=== PATIENT | female | born 1995 | race Caucasian/White ===

== ENCOUNTER 2016-08-18 10:50 | Emergency (ER) | payer SELFPAY ==
[2016-08-18 11:10] VITALS: TEMP 97.8; O2SAT 100
--- NOTE | 2016-08-18 12:29 | ED.PDOC ---
History of Present Illness - General Chief Complaint: TECHNOLOGY PROGRAM MANAGER Problem Stated Complaint: vaginal bleeding Time Seen by Provider: 08/18/16 10:51 Source: patient Exam Limitations: no limitations - History of Present Illness Initial Comments: the patient is a 20-year-old female presenting to the emergency room secondary to concern for a miscarriage. The patient's last menstrual period was in the early part of July. She took a urine test that was +3-4 days ago. She started having bleeding vaginally yesterday. She also has some cramping with it. No definite passage of tissue. Bleeding is a little bit heavier than a normal period. No syncope or near syncope. She has had 2 prior miscarriages. No fevers. Timing/Duration: 24 hours Severity: moderate Improving Factors: nothing Worsening Factors: nothing Allergies/Adverse Reactions: Allergies NO KNOWN ALLERGY Allergy (Verified 10/24/15 17:54) Home Medications: Ambulatory Orders Vit W/ Ferrous Fumara [] 1 tab PO DAILY 06/04/15 Review of Systems - Review of Systems Constitutional: States: no symptoms reported EENTM: States: no symptoms reported Respiratory: States: no symptoms reported Cardiology: States: no symptoms reported Gastrointestinal/Abdominal: States: see HPI Genitourinary: States: see HPI Musculoskeletal: States: no symptoms reported Skin: States: no symptoms reported Neurological: States: anxiety Endocrine: States: no symptoms reported All other Systems: No Change from Baseline Past Medical History (General) - Patient Medical History Hx Seizures: No Hx Stroke: No Hx Dementia: No Hx Asthma: No Hx of COPD: No Hx Cardiac Disorders: No Hx Congestive Heart Failure: No Hx Pacemaker: No Hx Hypertension: No Hx Thyroid Disease: No Hx Diabetes: No Hx Gastroesophageal Reflux: No Hx Renal Disease: No Hx Cancer: No Hx of HIV: No Hx Hepatitis C: No Hx MRSA: No Surgical History: no surgical history - Vaccination History Hx Tetanus, Diphtheria Vaccination: Yes Hx Influenza Vaccination: Yes - 2015 Hx Pneumococcal Vaccination: No - Social History Hx Tobacco Use: No Hx Chewing Tobacco Use: No Hx Alcohol Use: No Hx Substance Use: No Hx Substance Use Treatment: No Hx Depression: No Hx Physical Abuse: No Hx Emotional Abuse: No Hx Suspected Abuse: No - Female History Hx Last Menstrual Period: 01/19/14 Patient : Yes Family Medical History - Family History Mother Family History: Unknown Physical Exam - Physical Exam General Appearance: Alert, Anxious, No apparent distress Eye Exam: bilateral normal Ears, Nose, Throat: hearing grossly normal, normal ENT inspection, normal pharynx Neck: full range of motion, supple Respiratory: chest non-tender, lungs clear, normal breath sounds, no respiratory distress, no accessory muscle use Cardiovascular/Chest: normal peripheral pulses, regular rate, rhythm, no edema Peripheral Pulses: radial,right: 2+, radial,left: 2+, dorsalis pedis,right: 2+, dorsalis pedis,left: 2+ Gastrointestinal/Abdominal: non tender, soft Rectal Exam: deferred Back Exam: normal inspection, no CVA tenderness Extremity: normal range of motion, non-tender, normal inspection, no pedal edema , normal capillary refill 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 No obvious viable with gestational sac was seen. No free fluid in the pelvis. Progress - Progress Progress: 08/18/16 12:29 the patient is a 20-year-old female that presented to the emergency room secondary to concern for early miscarriage. Serum hCG is undetectable. She reports a positive urine hCG a few days ago. This was either a false positive or she checked just as her levels were trending back down to 0 from a very early miscarriage. She should take vitamins daily. I would encourage her to recheck a urine hCG at her follow-up appointment with her research methodologist. No evidence of any uncontrolled hemorrhage. Blood type is O+. ER warnings were given for any worsening. Tylenol 3 use for discomfort. - Results/Orders Results/Orders: Laboratory Results - last 24 hr 08/18/16 08/18/16 08/18/16 11:25 11:25 11:25 WBC 5.3 RBC 4.74 Hgb 12.6 Hct 39.0 MCV 82.4 MCH 26.6 L MCHC 32.3 L RDW 13.1 Plt Count 171 MPV 8.9 Absolute Neuts (auto) 3.60 Absolute Lymphs (auto) 1.20 Absolute Monos (auto) 0.40 Absolute Eos (auto) 0.00 Absolute Basos (auto) 0.00 Neutrophils % 68.0 Lymphocytes % 22.4 Monocytes % 8.1 Eosinophils % 0.6 L Basophils % 0.9 Sodium 137 Potassium 4.0 Chloride 103 Carbon Dioxide 26 Anion Gap 12.0 BUN 11 Creatinine 0.60 BUN/Creatinine Ratio 18.3 Random Glucose 89 Serum Osmolality 272.7 L Calcium 8.8 Beta HCG, Quant < 0.6 Patient ABO/Rh O POSITIVE Departure - Departure Clinical Impression: Dysmenorrhea Disposition: Discharge to Home or Self Care Condition: Fair Departure Forms: ED Discharge - Pt. Copy, Patient Portal Self Enrollment Diet: regular diet Activity: increase activity as tolerated Home Medications: Ambulatory Orders Vit W/ Ferrous Fumara [] 1 tab PO DAILY 06/04/15 Additional Instructions: the patient is a 20-year-old female that presented to the emergency room secondary to concern for early miscarriage. Serum hCG is undetectable. She reports a positive urine hCG a few days ago. This was either a false positive or she checked just as her levels were trending back down to 0 from a very early miscarriage. She should take vitamins daily. I would encourage her to recheck a urine hCG at her follow-up appointment with her research methodologist. No evidence of any uncontrolled hemorrhage. Blood type is O+. ER warnings were given for any worsening. Tylenol 3 use for discomfort.
[2016-08-18 13:04] VITALS: BP 111/74
== END 2016-08-18 12:55 | disposition home or self-care (01) ==
LOC: ER 10:50
DX: N94.6 Dysmenorrhea, unspecified (principal)

== ENCOUNTER → 2017-01-28 | Outpatient (CLI) | payer MEDICAID | END | disposition home or self-care (01) | LOC: LAB.O 10:44 | PROVIDERS: ATTEND Obstetrics & Gynecology | DX: O20.0 Threatened abortion (principal) ==

== ENCOUNTER → 2017-01-30 | Outpatient (CLI) | payer MEDICAID | END | disposition home or self-care (01) | LOC: LAB.O 12:12 | PROVIDERS: ATTEND Obstetrics & Gynecology | DX: O20.0 Threatened abortion (principal) ==

== ENCOUNTER → 2017-02-17 | Outpatient (CLI) | payer OTHER | END | disposition home or self-care (01) | LOC: LAB.O 14:49 | PROVIDERS: ATTEND Obstetrics & Gynecology | DX: N97.9 Female infertility, unspecified (principal) ==

== ENCOUNTER → 2017-03-01 | Outpatient (CLI) | payer OTHER, MEDICAID | END | disposition home or self-care (01) | LOC: LAB.O 14:24 | PROVIDERS: ATTEND Obstetrics & Gynecology | DX: N97.9 Female infertility, unspecified (principal) ==

== ENCOUNTER 2018-01-12 17:16 | Emergency (ER) | payer SELFPAY ==
[2018-01-12 17:26] VITALS: TEMP 96.7; O2SAT 99
[2018-01-12] MEDS ORDERED: METOCLOPRAMIDE HCL INJ 10 MG/2 ML VIAL IV ONE (17:29)
[2018-01-12] MEDS ORDERED: KETOROLAC TROMETHAMINE INJ 30 MG/ML VIAL IV ONE (17:29)
[2018-01-12] MEDS ORDERED: HALOPERIDOL LACTATE INJ 5 MG/ML VIAL IM ONE (17:29)
[2018-01-12] MEDS ORDERED: diphenhydrAMINE HCL 50 MG/ML VIAL IV ONE (17:29)
--- NOTE | 2018-01-12 17:34 | ED.PDOC ---
History of Present Illness - General Chief Complaint: Headache Stated Complaint: migraine Time Seen by Provider: 01/12/18 17:28 Source: patient - History of Present Illness Initial Comments: HAS A HX OF MIGRAINE RAO'S. SHE STARTED WITH THIS HEADACHE YESTERDAY AFTERNOON, 09/17. HAS BEEN TAKING TYLENOL BUT NOT IMPROVED. THE RAO IS UNIVERSAL AND ASSOCIATED WITH NAUSEA AND PHOTOPHOBIA. Timing/Duration: 24 hours Severity: moderate Improving Factors: nothing Worsening Factors: nothing Associated Symptoms: nausea/vomiting Allergies/Adverse Reactions: Allergies NO KNOWN ALLERGY Allergy (Verified 10/24/15 17:54) Home Medications: Ambulatory Orders Zolmitriptan [Zomig] 2.5 mg PO Q24HR #6 tab 01/12/18 Review of Systems - Review of Systems Constitutional: States: no symptoms reported EENTM: States: no symptoms reported Respiratory: States: no symptoms reported Cardiology: States: no symptoms reported Gastrointestinal/Abdominal: States: nausea Genitourinary: States: no symptoms reported Musculoskeletal: States: no symptoms reported Skin: States: no symptoms reported Neurological: States: headache Endocrine: States: no symptoms reported Hematologic/Lymphatic: States: no symptoms reported Past Medical History (General) - Patient Medical History Hx Seizures: No Hx Stroke: No Hx Dementia: No Hx Asthma: No Hx of COPD: No Hx Cardiac Disorders: No Hx Congestive Heart Failure: No Hx Pacemaker: No Hx Hypertension: No Hx Thyroid Disease: No Hx Diabetes: No Hx Gastroesophageal Reflux: No Hx Renal Disease: No Hx Cancer: No Hx of HIV: No Hx Hepatitis C: No Hx MRSA: No Surgical History: no surgical history - Vaccination History Hx Tetanus, Diphtheria Vaccination: Yes Hx Influenza Vaccination: No Hx Pneumococcal Vaccination: No - Social History Hx Tobacco Use: No Hx Chewing Tobacco Use: No Hx Alcohol Use: No Hx Substance Use: No Hx Substance Use Treatment: No Hx Depression: No Hx Physical Abuse: No Hx Emotional Abuse: No Hx Suspected Abuse: No - Female History Patient is a Female of Child Bearing Age (10 -59 yrs old): Yes Hx Last Menstrual Period: 01/19/14 Patient : Yes Family Medical History - Family History Mother Family History: Unknown Physical Exam - Physical Exam General Appearance: Alert, Obvious distress, Well Developed, Well Groomed, Well Hydrated, Well Nourished Eye Exam: bilateral normal Ears, Nose, Throat: hearing grossly normal, normal ENT inspection Neck: non-tender, full range of motion, supple Respiratory: chest non-tender, lungs clear, normal breath sounds, no respiratory distress Cardiovascular/Chest: normal peripheral pulses, regular rate, rhythm, no edema, no gallop, no JVD Peripheral Pulses: radial,right: 2+, radial,left: 2+ Gastrointestinal/Abdominal: normal bowel sounds, non tender, soft, no organomegaly, no pulsatile mass Extremity: normal range of motion 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 Departure - Departure Clinical Impression: Migraine Qualifiers: Migraine type: with aura Status migrainosus presence: without status migrainosus Intractability: not intractable Qualified Code(s): G43.109 - Migraine with aura, not intractable, without status migrainosus Time of Disposition: 18:44 Disposition: Discharge to Home or Self Care Condition: Good Departure Forms: ED Discharge - Pt. Copy, Patient Portal Self Enrollment Instructions: DI for Headache Diet: resume usual diet Activity: increase activity as tolerated Prescriptions: Zolmitriptan [Zomig] 2.5 mg PO Q24HR #6 tab Home Medications: Ambulatory Orders Zolmitriptan [Zomig] 2.5 mg PO Q24HR #6 tab 01/12/18 Comments: FOLLOW UP WITH YOUR FAMILY DOCTOR.
[2018-01-12 18:48] VITALS: BP 115/65
== END 2018-01-12 18:49 | disposition home or self-care (01) ==
LOC: ER 17:16
DX: G43.109 Migraine with aura, not intractable, without status migrainosus (principal)
CPT/HCPCS: J1200; J1630; J1885; J2765

== ENCOUNTER 2018-01-13 13:56 | Emergency (ER) | payer SELFPAY ==
[2018-01-13 14:14] VITALS: TEMP 99.6; O2SAT 97
[2018-01-13] MEDS ORDERED: predniSONE 20 MG TAB PO ONE (16:00)
[2018-01-13] MEDS ORDERED: CYCLOBENZAPRINE HCL 10 MG TAB PO ONE (16:00)
--- NOTE | 2018-01-13 16:19 | ED.PDOC ---
History of Present Illness - General Chief Complaint: General Stated Complaint: left leg pain and decreased ROM Time Seen by Provider: 01/13/18 14:02 Source: patient Exam Limitations: no limitations - History of Present Illness Initial Comments: the patient is a 22-year-old female presenting to the emergency room secondary to left-sided leg discomfort that started approximately 4 hours prior to arrival. The patient had been standing most of the day when it started. She reports that it caused her pain radiating from the outer part of her left hip to the inner part of the left knee. No decreased sensation. No change in coloration. It was cramping in nature. It seems to let up when she is off of it. No real back pain with it. The patient was here in the emergency room yesterday for a migraine headache. She did receive an injection in the buttock but it was on the other side. Her headache is gone. No evidence of any neurological deficits. No back pain here today. Timing/Duration: unsure Severity: moderate Improving Factors: nothing Worsening Factors: nothing Associated Symptoms: denies symptoms Allergies/Adverse Reactions: Allergies NO KNOWN ALLERGY Allergy (Verified 01/13/18 14:13) Home Medications: Ambulatory Orders Cyclobenzaprine HCl [Flexeril] 5 mg PO TID PRN #14 tab 01/13/18 predniSONE [Prednisone] 20 mg PO DAILY #2 tab 01/13/18 Review of Systems - Review of Systems Constitutional: States: no symptoms reported EENTM: States: no symptoms reported Respiratory: States: no symptoms reported Cardiology: States: no symptoms reported Gastrointestinal/Abdominal: States: no symptoms reported Genitourinary: States: no symptoms reported Musculoskeletal: States: see HPI Skin: States: no symptoms reported Neurological: States: no symptoms reported Endocrine: States: no symptoms reported All other Systems: No Change from Baseline Past Medical History (General) - Patient Medical History Hx Seizures: No Hx Stroke: No Hx Dementia: No Hx Asthma: No Hx of COPD: No Hx Cardiac Disorders: No Hx Congestive Heart Failure: No Hx Pacemaker: No Hx Hypertension: No Hx Thyroid Disease: No Hx Diabetes: No Hx Gastroesophageal Reflux: No Hx Renal Disease: No Hx Cancer: No Hx of HIV: No Hx Hepatitis C: No Hx MRSA: No Surgical History: no surgical history - Vaccination History Hx Tetanus, Diphtheria Vaccination: Yes Hx Influenza Vaccination: No Hx Pneumococcal Vaccination: No - Social History Hx Tobacco Use: No Hx Chewing Tobacco Use: No Hx Alcohol Use: No Hx Substance Use: No Hx Substance Use Treatment: No Hx Depression: No Hx Physical Abuse: No Hx Emotional Abuse: No Hx Suspected Abuse: No - Female History Hx Last Menstrual Period: 01/19/14 Patient : Yes Family Medical History - Family History Mother Family History: Unknown Physical Exam - Physical Exam General Appearance: Alert, Comfortable, No apparent distress Eye Exam: bilateral normal Ears, Nose, Throat: hearing grossly normal, normal pharynx Neck: full range of motion, supple Respiratory: lungs clear, normal breath sounds, no respiratory distress, no accessory muscle use Cardiovascular/Chest: normal peripheral pulses, regular rate, rhythm, no edema Peripheral Pulses: radial,right: 2+, radial,left: 2+, dorsalis pedis,right: 2+, dorsalis pedis,left: 2+, posterior tibialis,right: 2+, posterior tibialis,left: 2+ Gastrointestinal/Abdominal: non tender, soft Back Exam: normal inspection, no CVA tenderness, no vertebral tenderness Extremity: normal range of motion, non-tender, normal inspection, no pedal edema , normal capillary refill 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 After ambulating the patient here I do believe that the discomfort is from a sartorius muscle spasm on the left. She'll be written for 2 days of prednisone and 5 days of as needed Flexeril as a muscle relaxer. She does need to stretch out the leg to help reduce muscle spasm there. I'm uncertain what is triggered this flareup. She should keep follow-up with her primary care doctor within the next 4-5 days. [id number] anti-inflammatories with food may also help. ER warnings were given. keep well hydrated. - Results/Orders Results/Orders: Laboratory Tests 01/13/18 01/13/18 01/13/18 14:36 14:36 14:37 WBC 5.1 RBC 4.61 Hgb 12.6 Hct 38.7 MCV 84.0 MCH 27.4 MCHC 32.6 L RDW 13.1 Plt Count 171 MPV 9.6 Absolute Neuts (auto) 3.30 Absolute Lymphs (auto) 1.30 Absolute Monos (auto) 0.50 Absolute Eos (auto) 0.10 Absolute Basos (auto) 0.00 Neutrophils % 64.5 Lymphocytes % 24.7 Monocytes % 8.9 Eosinophils % 1.3 Basophils % 0.6 Sodium 137 Potassium 3.9 Chloride 103 Carbon Dioxide 27 Anion Gap 10.9 L BUN 16 Creatinine 0.85 BUN/Creatinine Ratio 18.8 Random Glucose 95 Serum Osmolality 274.8 L Lactic Acid Calcium 9.3 Magnesium 2.0 Total Bilirubin 0.8 AST 16 ALT 11 Alkaline Phosphatase 68 Creatine Kinase 89 CK-MB (CK-2) 1.4 CK-MB (CK-2) % Not Reportable Troponin I < 0.02 Serum Total Protein 7.5 Albumin 4.0 Globulin 3.5 Albumin/Globulin Ratio 1.1 TSH 2.17 Serum HCG, Qual Negative 01/13/18 14:49 WBC RBC Hgb Hct MCV MCH MCHC RDW Plt Count MPV Absolute Neuts (auto) Absolute Lymphs (auto) Absolute Monos (auto) Absolute Eos (auto) Absolute Basos (auto) Neutrophils % Lymphocytes % Monocytes % Eosinophils % Basophils % Sodium Potassium Chloride Carbon Dioxide Anion Gap BUN Creatinine BUN/Creatinine Ratio Random Glucose Serum Osmolality Lactic Acid 1.2 Calcium Magnesium Total Bilirubin AST ALT Alkaline Phosphatase Creatine Kinase CK-MB (CK-2) CK-MB (CK-2) % Troponin I Serum Total Protein Albumin Globulin Albumin/Globulin Ratio TSH Serum HCG, Qual Departure - Departure Clinical Impression: Muscle spasm Disposition: Discharge to Home or Self Care Condition: Fair Departure Forms: ED Discharge - Pt. Copy, Patient Portal Self Enrollment Instructions: Muscle Spasms (DC) Diet: regular diet Activity: increase activity as tolerated Prescriptions: Cyclobenzaprine HCl [Flexeril] 5 mg PO TID PRN #14 tab PRN Reason: Muscle Spasms predniSONE [Prednisone] 20 mg PO DAILY #2 tab Home Medications: Ambulatory Orders Cyclobenzaprine HCl [Flexeril] 5 mg PO TID PRN #14 tab 01/13/18 predniSONE [Prednisone] 20 mg PO DAILY #2 tab 01/13/18 Additional Instructions: the patient's 22-year-old female presenting with slightly atypical symptoms of left leg pain and mild motor dysfunction after using the leg for a while. After ambulating the patient here I do believe that the discomfort is from a sartorius muscle spasm on the left. She'll be written for 2 days of prednisone and 5 days of as needed Flexeril as a muscle relaxer. She does need to stretch out the leg to help reduce muscle spasm there. I'm uncertain what is triggered this flareup. She should keep follow-up with her primary care doctor within the next 4-5 days. [id number] anti-inflammatories with food may also help. ER warnings were given. keep well hydrated.
[2018-01-13 16:29] VITALS: BP 118/87
== END 2018-01-13 16:29 | disposition home or self-care (01) ==
LOC: ER 13:56
DX: M62.838 Other muscle spasm (principal)
CPT/HCPCS: 80053; 82550; 82553; 83605; 83735; 84443; 84484; 84703; 85025; J7512

== ENCOUNTER → 2018-05-06 | Outpatient (CLI) | payer BC ==
--- NOTE | 2018-05-07 17:05 | US ---
EXAM DESCRIPTION: Pelvis Transvaginal: Ultrasound. CLINICAL HISTORY: 22 years Female RECURRENT MISCARRIAGE. LMP 05/06/2018. SAB 6. COMPARISON: Ultrasound pelvis 09/11/2008. TECHNIQUE: Endovaginal scanning; Haskins-scale and Doppler modes. FINDINGS: Uterus 7.8 x 4.9 x 4.1 cm. Endometrial thickness is 7.2 mm. Myometrium appears homogeneous. Uterus not retroflexed. Cervix unremarkable. Cul-de-sac contains no fluid. Right ovary 3.7 x 2.5 x 2.2 cm. Normal waveform and color Doppler vascularity. Multiple follicles. 3.2 x 2.8 x 1.8 cm partially solid heterogeneous cyst. Probably hemorrhagic. No internal nodule. Volume 8.3 mL. No adnexal mass or free fluid. Left ovary 3.0 x 2.8 x 2.2 cm. 6.3 mL. Normal color and waveform Doppler vascularity. Small follicles but no cysts. No adnexal mass or free fluid. IMPRESSION: 1. 3.2 cm indeterminate right ovarian cyst. Possibly hemorrhagic. [facility] Best Practice guidelines: Recommend pelvic US follow-up in 6-12 weeks; if unchanged, continue follow-up with US OR MRI with IV contrast - if follow-up studies do not confirm endometrioma or dermoid, consider surgical evaluation. Reference: Radiology 2010 Oct;256(3):943-54 2. Left ovary normal vascularity and size with multiple follicles. Uterus normal position and size with no endometrial thickening. No fluid in the cul-de-sac. Electronically signed by: Kei Gibson MD 05/07/2018 5:02 PM CDT
== END ==
LOC: LAB.O 13:23
PROVIDERS: ATTEND Emergency Medicine
DX: N96 Recurrent pregnancy loss (principal); N83.201 Unspecified ovarian cyst, right side

== ENCOUNTER → 2018-12-31 | Outpatient (CLI) | payer OTHER | END | disposition home or self-care (01) | LOC: LAB.O 10:59 | PROVIDERS: ATTEND Emergency Medicine | DX: O13.9 Gestational [pregnancy-induced] hypertension without significant proteinuria, unspecified trimester (principal) ==